=== PATIENT | female | born 1955 | race Caucasian/White ===

== ENCOUNTER 2023-07-25 20:35 | Emergency (ER) | payer OTHER ==
[2023-07-25 20:51] VITALS: BP 122/67; PULSE 67; RESP 18; TEMP 97.8; BMI 32.9
== END 2023-07-25 22:23 | disposition home or self-care (01) ==
LOC: FER 20:35
DX: S09.93XA Unspecified injury of face, initial encounter (principal); S03.42XA Sprain of jaw, left side, initial encounter; R68.84 Jaw pain; K08.89 Other specified disorders of teeth and supporting structures; R53.83 Other fatigue; W01.198A Fall on same level from slipping, tripping and stumbling with subsequent striking against other object, initial encounter
CPT/HCPCS: 70450-TC; 70486-TC; 99284-25

== ENCOUNTER 2023-10-20 18:44 | Emergency (ER) | payer OTHER ==
[2023-10-20 19:02] VITALS: BMI 35.0
[2023-10-20] MEDS ORDERED: ACETAMINOPHEN 1000 MG/100 ML BAG IVPB ONE (19:23)
[2023-10-20] MEDS ORDERED: SODIUM CHLORIDE 0.9% 500 ML INFUS.BAG IV ONE (19:23)
[2023-10-20] MEDS ORDERED: ACETAMINOPHEN INJECTION 100 ML IVPB ONE (19:27)
[2023-10-20 20:30] LABS: HEMATOCRIT 40.1 % (32.4-45.2); HEMOGLOBIN 13.3 G/dL (10.7-15.3); MCH 29.2 pg (25.7-33.7); MCHC 33.2 g/dl (32.0-36.0); MEAN CELL VOLUME 88.2 fl (80-96); MEAN PLT VOLUME 9.2 fl (7.5-11.1); PLATELET COUNT 203.6 10^3/uL (134-434); RBC 4.55 10^6/uL (3.60-5.2); RDW 14.7 % (11.6-15.6); WHITE BLOOD COUNT 10.1 10^3/uL (4.0-10.8)
[2023-10-20 20:53] LABS: ALBUMIN 3.6 g/dl (3.4-5.0); BILIRUBIN,TOTAL 0.6 mg/dl (0.2-1); CREATININE 0.7 mg/dl (0.6-1.3); POTASSIUM 3.7 mmol/L (3.5-5.1)
[2023-10-20] MEDS ORDERED: CEFTRIAXONE 1,000 MG in DEXTROSE 5%-WATER - 50 ML IVPB ONE (21:03)
[2023-10-20 21:04] LABS: EPITHELIAL CELLS 0-5 /hpf
[2023-10-20] MEDS ORDERED: cefTRIAXone SODIUM 1 GM VIAL ONE (21:14)
[2023-10-20] MEDS ORDERED: PHENAZOPYRIDINE HCL 100 MG TABLET (FP) PO ONE (21:29)
[2023-10-20] MEDS ORDERED: PHENAZOPYRIDINE HCL 100 MG TABLET (FP) ONE (21:34)
[2023-10-20 21:38] VITALS: BP 109/71; PULSE 68; RESP 16; TEMP 99.8
== END 2023-10-20 22:51 | disposition home or self-care (01) ==
LOC: FER 18:44
PROC: 3E03329 Introduction of Other Anti-infective into Peripheral Vein, Percutaneous Approach (ICD-10-PCS; principal; 2023-10-20)
PROC: 3E033NZ Introduction of Analgesics, Hypnotics, Sedatives into Peripheral Vein, Percutaneous Approach (ICD-10-PCS; 2023-10-20)
DX: R35.0 Frequency of micturition (principal); R30.0 Dysuria; M54.50 Low back pain, unspecified; R32 Unspecified urinary incontinence; R50.9 Fever, unspecified; N30.90 Cystitis, unspecified without hematuria
CPT/HCPCS: 36415; 80053; 81003; 81015; 83605; 85027; 87040; 87086; 87186; 99284-25